=== PATIENT | female | born 1970 | race Hispanic/Latino ===

== ENCOUNTER 2021-03-31 11:14 | Emergency (ER) | payer OTHER ==
[2021-03-31 11:40] LABS: BASOPHILS % (AUTO) 0.6 % (0.0-5.0); EOSINOPHILS % (AUTO) 0.7 % (0.0-8.0); HEMATOCRIT 25.9 % (36-48); MEAN CORPUSCULAR HEMOGLOBIN 21.1 pg (27.0-33.0); MONOCYTES % (AUTO) 4.9 % (3.0-13.0); NEUTROPHILS % (AUTO) 74.2 % (40.0-77.0); NUCLEATED RED BLOOD CELLS 0.3 % (0.0-0.19); PLATELET COUNT (AUTO) 454 K/uL (130-400); RED BLOOD CELL COUNT(AUTO) 3.55 MIL/uL (4.00-5.50); RED CELL DISTRIBUTION WIDTH 17.7 % (11.0-15.5); WHITE BLOOD COUNT (AUTO) 6.7 K/uL (4.8-10.8)
[2021-03-31 11:49] LABS: APPEARANCE,URINE Clear (CLEAR); BILIRUBIN,URINE Negative (NEGATIVE); COLOR,URINE Yellow (YELLOW); GLUCOSE, URINE (UA) >=1000 mg/dL (NEGATIVE); KETONES,URINE 40 mg/dL (NEGATIVE); LEUKOCYTE ESTERASE ,URINE Negative (NEGATIVE); NITRATE,URINE Positive (NEGATIVE); OCCULT BLOOD,URINE Small (NEGATIVE); PROTEIN,URINE POS 2+ mg/dL (NEGATIVE); UROBILINOGEN,URINE 0.2 mg/dL (0.2-1.0)
[2021-03-31 11:52] LABS: ALBUMIN 3.4 g/dL (3.5-5.0); CREATININE 0.6 mg/dL (0.5-1.5); POTASSIUM 3.6 mmol/L (3.5-5.1)
[2021-03-31 11:54] LABS: BILIRUBIN,TOTAL 0.4 mg/dL (0.2-1.0); TOTAL PROTEIN, SERUM 7.6 g/dL (6.0-8.3)
[2021-03-31 12:14] LABS: BACTERIA,URINE Moderate /HPF (None Seen); RBC,URINE 0-1 /HPF (0-1)
[2021-03-31 12:15] LABS: SQUAMOUS EPITHELIAL CELL,UR Rare /HPF (0-2)
[2021-03-31] MEDS ORDERED: SODIUM CHLORIDE 0.9% 1000ML 1,000 ML IV ONE (12:45)
[2021-03-31] MEDS ORDERED: CEFTRIAXONE SODIUM 1 GM ONE (12:45)
[2021-03-31] MEDS ORDERED: INSULIN HUMULIN R 100 UNIT/ML 3ML ONE (12:47)
== END 2021-03-31 17:08 | disposition home or self-care (01) ==
LOC: EDH 11:14
DX: D64.9 Anemia, unspecified (principal); N30.90 Cystitis, unspecified without hematuria; I10 Essential (primary) hypertension; E11.65 Type 2 diabetes mellitus with hyperglycemia; N92.0 Excessive and frequent menstruation with regular cycle
CPT/HCPCS: 36415; 36430; 71045; 80053; 81001; 82270; 82550; 82948; 84484; 85025; 86850; 86900; 86901; 86923; 87077; 87088; 87186; 93005; 96365; 96375; 99285; J0696; J1815; J7030; P9016

== ENCOUNTER 2022-01-24 21:36 | Observation (INO) | payer BC, OTHER ==
[~2022-01-24] VITALS: Ht 160 cm; Wt 61.6 kg
[2022-01-24 22:32] LABS: BASOPHILS % (AUTO) 0.5 % (0.0-5.0); EOSINOPHILS % (AUTO) 0.2 % (0.0-8.0); LYMPHOCYTES % (AUTO) 14.3 % (21.0-51.0); MEAN CORPUSCULAR HEMOGLOBIN 27.6 pg (27.0-33.0); MEAN CORPUSCULAR HGB CONC 31.9 g/dL (32.0-36.0); MEAN CORPUSCULAR VOLUME 86.6 fL (79-99); MONOCYTES % (AUTO) 4.4 % (3.0-13.0); NEUTROPHILS % (AUTO) 80.2 % (40.0-77.0); PLATELET COUNT (AUTO) 275 K/uL (130-400); RED BLOOD CELL COUNT(AUTO) 2.39 MIL/uL (4.00-5.50); RED CELL DISTRIBUTION WIDTH 13.8 % (11.0-15.5); WHITE BLOOD COUNT (AUTO) 11.2 K/uL (4.8-10.8)
[2022-01-24 22:40] LABS: HEMATOCRIT 20.7 % (36-48)
[2022-01-24 22:50] LABS: ALBUMIN 2.4 g/dL (3.5-5.0); BILIRUBIN,TOTAL 0.1 mg/dL (0.2-1.0); POTASSIUM 5.2 mmol/L (3.5-5.1); TOTAL PROTEIN, SERUM 6.3 g/dL (6.0-8.3)
[2022-01-24] MEDS ORDERED: INSULIN HUMULIN R 100 UNIT/ML 3ML IV ONE (23:00)
[2022-01-24] MEDS: 0.9%NACL 1000ML 1,000 ML IV SCH (23:00)
[2022-01-24] MEDS ORDERED: 0.9%NACL 1000ML 1,000 ML IV ONE (23:00)
[2022-01-24] MEDS ORDERED: ONDANSETRON 4MG INJ IV PRN (23:00)
[2022-01-24 23:07] LABS: ABG OXYGEN SATURATION 86.9 % (95.0-99.0); PCO2,VENOUS BLOOD GAS 33 (32-45); PH,VENOUS BLOOD GAS 7.461 (7.350-7.450)
[2022-01-24 23:29] LABS: INR 0.93 (0.85-1.15); PROTHROMBIN TIME 10.2 SEC (9.6-11.6)
[2022-01-24 23:31] LABS: PARTIAL THROMBOPLASTIN TIME 24.8 SEC (26.3-35.5)
[2022-01-24 23:33] LABS: % IRON SATURATION 13.6 % (22-44)
[2022-01-25] VITALS (7 sets, daily range): BP systolic 124–181; BP diastolic 64–89
[2022-01-25] MEDS ORDERED: 0.9% NACL 250ML 250 ML ONE (03:59)
[2022-01-25 04:58] LABS: APPEARANCE,URINE CLOUDY (CLEAR); BILIRUBIN,URINE NEGATIVE (NEGATIVE); COLOR,URINE RED (YELLOW); GLUCOSE, URINE (UA) >=1000 mg/dL (NEGATIVE); KETONES,URINE NEGATIVE (NEGATIVE); LEUKOCYTE ESTERASE ,URINE NEGATIVE (NEGATIVE); NITRATE,URINE NEGATIVE (NEGATIVE); OCCULT BLOOD,URINE LARGE (NEGATIVE); PROTEIN,URINE 100 mg/dL (NEGATIVE); UROBILINOGEN,URINE 0.2 mg/dL (0.2-1.0)
[2022-01-25 05:06] LABS: BACTERIA,URINE Few /HPF (None Seen); RBC,URINE >100 /HPF (0-1); SQUAMOUS EPITHELIAL CELL,UR 0-2 /HPF (0-2); WBC,URINE 0-1 /HPF (0-1)
[2022-01-25] MEDS: ACETAMINOPHEN 325 MG TAB PO PRN ×2 (05:33→12:19)
[2022-01-25] MEDS: INSULIN HUMULIN R 100 UNIT/ML 3ML SQ SCH ×3 (06:27→16:57)
[2022-01-25] MEDS ORDERED: LISINOPRIL 20 MG TABLET PO SCH (09:00)
[2022-01-25] MEDS ORDERED: FAMOTIDINE 20MG TAB PO SCH (09:00)
[2022-01-25 09:43] LABS: BASOPHILS % (AUTO) 0.4 % (0.0-5.0); EOSINOPHILS % (AUTO) 0.6 % (0.0-8.0); HEMATOCRIT 29.6 % (36-48); MEAN CORPUSCULAR HEMOGLOBIN 28.4 pg (27.0-33.0); MEAN CORPUSCULAR HGB CONC 32.8 g/dL (32.0-36.0); MEAN CORPUSCULAR VOLUME 86.5 fL (79-99); MONOCYTES % (AUTO) 5.6 % (3.0-13.0); NEUTROPHILS % (AUTO) 77.9 % (40.0-77.0); PLATELET COUNT (AUTO) 235 K/uL (130-400); RED BLOOD CELL COUNT(AUTO) 3.42 MIL/uL (4.00-5.50); RED CELL DISTRIBUTION WIDTH 13.2 % (11.0-15.5); WHITE BLOOD COUNT (AUTO) 9.5 K/uL (4.8-10.8)
[2022-01-25] MEDS: 0.9%NACL 1000ML 1,000 ML IV SCH (09:56)
[2022-01-25 09:57] LABS: HEMOGLOBIN A1C 8.7 % (4.0-6.0)
[2022-01-25 10:10] LABS: CREATININE 0.5 mg/dL (0.5-1.5); MAGNESIUM 1.5 mg/dL (1.80-2.40); PHOSPHORUS 3.1 mg/dL (2.5-4.9); POTASSIUM 3.8 mmol/L (3.5-5.1); THYROID STIMULATING HORMONE 2.81 uIU/mL (0.36-3.74)
[2022-01-25] MEDS ORDERED: MAGNESIUM 2GM PREMIX 50ML 50 ML IV PRN (13:30)
[2022-01-25] MEDS ORDERED: HYDRALAZINE 20MG/ML VIAL IV PRN (14:00)
[2022-01-25] MEDS: PHARMACY COMMUNICATION MISC SCH ×5 (14:00→18:00)
[2022-01-25] MEDS ORDERED: LISI20TA24 PO (15:15)
[2022-01-25 15:36] LABS: HEMATOCRIT 30.9 % (36-48)
[2022-01-25 15:49] LABS: CREATININE 0.4 mg/dL (0.5-1.5); POTASSIUM 3.8 mmol/L (3.5-5.1)
[2022-01-25] MEDS ORDERED: HYDRALAZINE 25MG TABLET PO SCH (16:15)
[2022-01-25] MEDS ORDERED: GUAFACSF5L PO (17:18)
[2022-01-25] MEDS ORDERED: METOPROLOL TARTRATE 1 MG/ML 5ML VIAL IV PRN (17:30)
[2022-01-25] MEDS ORDERED: GUAIFENESIN-CODEINE 5 ML SYRUP PO PRN (17:30)
[2022-01-25] MEDS ORDERED: FERR325T29 PO (18:09)
[2022-01-25] MEDS ORDERED: METF-526 PO (18:35)
== END 2022-01-25 19:35 | disposition home or self-care (01) ==
LOC: EDH 21:36 → EDHIP 23:00 → 3BH 23:42
PROVIDERS: ADMIT Internal Medicine; ATTEND Internal Medicine
DX: D64.9 Anemia, unspecified (principal); Z20.822 Contact with and (suspected) exposure to COVID-19; E11.65 Type 2 diabetes mellitus with hyperglycemia; N93.9 Abnormal uterine and vaginal bleeding, unspecified; D72.829 Elevated white blood cell count, unspecified; E78.00 Pure hypercholesterolemia, unspecified; E78.5 Hyperlipidemia, unspecified; I10 Essential (primary) hypertension; J06.9 Acute upper respiratory infection, unspecified; N83.202 Unspecified ovarian cyst, left side; N92.0 Excessive and frequent menstruation with regular cycle; Z79.4 Long term (current) use of insulin; Z79.899 Other long term (current) drug therapy; Z91.19 Patient's noncompliance with other medical treatment and regimen; Z98.890 Other specified postprocedural states; Z79.84 Long term (current) use of oral hypoglycemic drugs
CPT/HCPCS: 36415 ×2; 36430 ×2; 36600; 71045; 76856; 80048 ×2; 80053; 81001; 82728; 82803; 82948 ×4; 83036; 83540; 83550; 83605 ×2; 83735; 84100; 84146; 84443; 84703; 85014; 85018; 85025 ×2; 85610; 85730; 86850; 86900; 86901; 86923; 87635; 87804 ×2; 87880; 96361; 96372; 96374; 96375; 99285; C9803; G0378 ×13; J1815 ×5; J3490; J7030; J7050; P9016 ×2

== ENCOUNTER 2024-03-16 23:12 | Emergency (ER) | payer BC, OTHER ==
[~2024-03-16] VITALS: Ht 154.9 cm; Wt 60.3 kg
[~2024-03-16 23:12] MED LIST: FERR325T29 PO; LISI20TA24 PO; METF-526 PO
[2024-03-17 00:23] LABS: CREATININE 0.9 mg/dL (0.5-1.0); POTASSIUM 3.5 mmol/L (3.5-5.1)
[2024-03-17 00:27] LABS: ALBUMIN 2.7 g/dL (3.5-5.0); BILIRUBIN,TOTAL 0.5 mg/dL (0.2-1.0); TOTAL PROTEIN, SERUM 6.2 g/dL (6.0-8.3)
[2024-03-17 00:37] LABS: BASOPHILS # (AUTO) 0.07 K/uL (0.00-0.20); EOSINOPHILS # (AUTO) 0.11 K/uL (0.00-0.70); EOSINOPHILS % (AUTO) 1.6 % (0.0-8.0); HEMATOCRIT 29.6 % (36-48); IMMATURE GRANULOCYTE ABSOLUTE 0.02 K/uL (0-1); LYMPHOCYTES # (AUTO) 1.7 K/uL (1.0-4.8); MEAN CORPUSCULAR HEMOGLOBIN 30.6 pg (27.0-33.0); MEAN CORPUSCULAR HGB CONC 34.1 g/dL (32.0-36.0); MEAN CORPUSCULAR VOLUME 89.7 fL (79-99); MONOCYTES # (AUTO) 0.6 K/uL (0.1-1.0); MONOCYTES % (AUTO) 8.5 % (3.0-13.0); NEUTROPHILS # (AUTO) 4.5 K/uL (1.8-7.7); NEUTROPHILS % (AUTO) 64.6 % (40.0-77.0); PLATELET COUNT (AUTO) 333 K/uL (130-400); RED CELL DISTRIBUTION WIDTH 12.6 % (11.0-15.5)
[2024-03-17 00:58] LABS: APPEARANCE,URINE CLEAR (CLEAR); BILIRUBIN,URINE NEGATIVE (NEGATIVE); COLOR,URINE YELLOW (YELLOW); GLUCOSE, URINE (UA) 250 mg/dL (NEGATIVE); KETONES,URINE 15 mg/dL (NEGATIVE); LEUKOCYTE ESTERASE ,URINE NEGATIVE Leu/uL (NEGATIVE); NITRATE,URINE NEGATIVE (NEGATIVE); OCCULT BLOOD,URINE TRACE-INTACT (NEGATIVE); PROTEIN,URINE >=300 mg/dL (NEGATIVE); UROBILINOGEN,URINE 0.2 mg/dL (0.2-1.0)
[2024-03-17 01:12] LABS: B-TYPE NATRIURETIC PEPTIDE 91 pg/mL (0-100)
[2024-03-17 01:16] VITALS: PULSE 87; RESP 18; O2SAT 99
[2024-03-17 01:21] LABS: ADD UA MICROSCOPIC YES
[2024-03-17 01:26] LABS: WBC,URINE 0-1 /HPF (0-1)
[2024-03-17 01:27] LABS: BACTERIA,URINE Few /HPF (None Seen); SQUAMOUS EPITHELIAL CELL,UR 0-2 /HPF (0-2)
[2024-03-17] MEDS ORDERED: CLON0.1T PO (01:35)
[2024-03-17 01:46] VITALS: BP 184/90
[2024-03-17] MEDS: CLONIDINE HCL 0.1 MG TABLET PO ONE (01:46)
== END 2024-03-17 01:52 | disposition home or self-care (01) ==
LOC: EDH 23:12
DX: F41.9 Anxiety disorder, unspecified (principal); I10 Essential (primary) hypertension; E11.9 Type 2 diabetes mellitus without complications; E78.00 Pure hypercholesterolemia, unspecified; Z79.4 Long term (current) use of insulin; Z79.84 Long term (current) use of oral hypoglycemic drugs; Z79.899 Other long term (current) drug therapy; Z90.710 Acquired absence of both cervix and uterus; Z98.51 Tubal ligation status
CPT/HCPCS: 36415; 71045; 80053; 81001; 83880; 84484; 85025; 93005